=== PATIENT | male | born 1935 | race Caucasian/White ===

== ENCOUNTER 2016-08-23 09:00 | Inpatient (IN) | payer MEDICARE ==
--- NOTE | 2016-08-17 22:54 | HP ---
ADMISSION HISTORY AND PHYSICAL: DATE OF ADMISSION: 08/24/16 ATTENDING PHYSICIAN: Dr. El Rizo (dictated by GIOVANNA Steve). CHIEF COMPLAINT: Ileostomy. HISTORY OF PRESENT ILLNESS: This is an 81-year-old male who underwent subtotal colectomy for right colon bleeding with an incidental sigmoid colon cancer on (the cancer was a T3N0 lesion. He was seen by Dr. Erazo and no further therapy was recommended. His CEA preop and subsequent measurement that were both normal.) The patient's postoperative course was characterized by one admission in January for dehydration and acute kidney injury. Since that time, he has maintained a slightly elevated serum creatinine with reduced creatinine clearance. A consult with Dr. Quan is pending, though the patient does not have a specific appointment yet. He has had some occasional leakage from the ileostomy appliance, but otherwise has had no other problems reported. He would like the ileostomy reversed. He has discussed the indications, risks, benefits, and alternatives of surgery as well as the expected perioperative course. He will administer 2 fleet enemas at home the day before surgery. No additional bowel prep was felt necessary. He understands that stools will likely continue to be loose and frequent per rectum, though eventually his overall fluid balance should improve. He also recently underwent a renal ultrasound showing increased echogenicity consistent medical kidney disease. Also noted was a left simple renal cyst measuring up to 1.7 cm and a simple hepatic cyst measuring up to 3.2 cm. That was ordered by Dr. Hadley with whom he also follows. PAST MEDICAL HISTORY: Colon cancer as noted above, hypertension (no longer requiring medication), insomnia, renal insufficiency (recent creatinine clearance was 41 and serum creatinine 2.3), chronic anemia (felt to be related to acute blood loss at the time of the surgery in January). Since then, he has maintained a fairly stable hemoglobin, though somewhat decreased. His indices ( MCV and MCH) are increased possibly consistent with thalassemia (he has a son who has thalassemia minor). His serum and iron binding capacities were normal. PAST SURGICAL HISTORY: Pervious surgeries include subtotal colectomy on , bilateral inguinal herniorrhaphies, appendectomy remotely, TURB of a bladder cancer by Dr. Hadley, also status post BCG treatment (he underwent cystoscopy in mid July which he states was a normal report). CURRENT MEDICATIONS: 1. Ferrous sulfate 325 mg b.i.d. 2. Vitamin C 500 mg once daily. 3. Fluticasone nasal spray 2 sprays each nostril once daily p.r.n. (has not used in the last 4 to 6 months). 4. Zolpidem 5 mg q.h.s. p.r.n. insomnia (has not needed in recent months). DRUG ALLERGIES: None known. FAMILY HISTORY: Negative for anesthesia problems, bleeding, or clotting disorders (thalassemia minor history in his son. The patient himself has not undergone workup for same). SOCIAL HISTORY: The patient is a . 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 He is a nonsmoker, other than remotely and drinks approximately 4 drinks per week. He denies other substance use. REVIEW OF SYSTEMS: General: No recent constitutional symptoms other than as noted above. He did have approximately 15 to 20 pounds weight loss in relation to his January admission and has regained some of that with current weight being relatively stable at 140. Skin: He has noted pruritus of the upper torso and upper extremities since his surgery. There has been no specific rash, however, nor has he had any specific treatment for the same. Cardiovascular: His records indicate a history of left bundle branch block, which has not required additional workup. We will obtain preoperative EKG for comparison. He denies any chest pain, palpitations, or lightheadedness. Respiratory: No history of asthma, chronic cough, or shortness of breath. GI: As above. He had no additions. : As above, no additions, followed by Dr. Hadley. Endocrine: No diabetes or thyroid dysfunction, though he has had a past history of impaired fasting glucose. PHYSICAL EXAMINATION GENERAL: Well-nourished, well-developed male, in no acute distress. VITAL SIGNS: Height 5 feet 6 inches, weight 141 pounds, temperature 96.6, blood pressure 118/74, pulse 76, BMI 22.8. SKIN: Warm and dry, no suspicious rashes or lesions noted. There are a few scattered areas consistent with excoriation over his upper torso. No infection. HEENT: Pupils equal and round, reactive. EOMs intact. No significant conjunctival pallor. Oropharynx: Few missing teeth. Remaining teeth in good repair. No intraoral lesions. Mucous membranes are moist. NECK: No lymphadenopathy, thyromegaly, or masses. LUNGS: Clear to auscultation. No rales or wheezes. HEART: Regular rate and rhythm. No murmur noted. ABDOMEN: He has a right-sided ileostomy. He has a well-healed lower midline incision. Abdomen is soft, nontender to palpation and without palpable masses or organomegaly. EXTREMITIES: No edema. GENITALIA and RECTAL: No done. BACK: No spinous process or CVA tenderness. NEUROLOGIC: Grossly intact. IMPRESSION: Ileostomy with desire for reversal. PLAN: Open ileostomy reversal. GIOVANNA STEWARD CC: Dr. Joel Joya; Dr. Robert Erazo; Dr. Jonathan Quan * [id number]/CPS #: [id number] MTDD
[2016-08-23] MEDS ORDERED: Ondansetron INJ* 2 MG/ML VIAL IV PRN (10:44)
[2016-08-23 11:40] LABS: Hematocrit 32 % (42-52); Hemoglobin 10.8 g/dl (14.0-18.0); Mean Corpuscular HGB Conc 34 g/dl (31-36); Mean Corpuscular Hemoglobin 32 pg (27-31); Mean Corpuscular Volume 96 fL (80-94); Mean Platelet Volume 8 um3 (7.4-10.4); Red Blood Count 3.36 10^6/ul (4.0-5.4); Red Cell Distribution Width 14 % (10.5-15); White Blood Count 7.9 10^3/ul (3.5-10.8)
[2016-08-23 11:56] LABS: Albumin 4.1 g/dL (3.2-5.2); BUN/Creatinine Ratio 18.8 (8-20); Calcium 9.3 mg/dL (8.6-10.3); EGFR African American 31.2 (>60); EGFR Non-African American 24.2 (>60); Globulin 2.7 g/dL (2-4); Potassium 3.4 mmol/L (3.5-5.0); Total Bilirubin 0.5 mg/dL (0.2-1.0); Total Protein 6.8 g/dL (6.4-8.9)
--- NOTE | 2016-08-23 11:57 | PN ---
Progress Note - Progress Note SOAP: Subjective: Pt yoseph dn examined. H and P reviewed. Pt has no complaints. Direct admitted prior to surgical intervention for hydration Objective: af vss lungs clear abdo: soft/ ND/ NT ileostomy intact no calf tenderness labs pending Assessment: Dehydration 2ary to ileostomy in pt for planned reversal of ostomy Plan: f/u labs hydration NPO at midnight
[2016-08-23] MEDS ORDERED: NS 0.9% 1000 ML* 1,000 ML IV ONE ×2 (12:19→17:57)
[2016-08-23] MEDS: NS 0.9% w/ 20 Meq KCL 1000 ML* 1,000 ML IV SCH ×2 (12:33→23:23)
[2016-08-23] MEDS ORDERED: Sodium Phosphate ADULT ENEMA* 118 ml bottle PR ONE (20:00)
--- NOTE | 2016-08-23 20:44 | CONS ---
HOSPITAL MEDICINE HISTORY AND PHYSICAL: DATE OF CONSULT: 08/23/16 ATTENDING PHYSICIAN: Raheel Hayes MD. CONSULTING PHYSICIAN: Blake Chacon MD (dictation provided by Dinorah Pope NP ). REASON FOR CONSULTATION: Medical co-management, admitted for reversal of ileostomy. HISTORY OF PRESENT ILLNESS: Mr. Acevedo is an 81-year-old male with a history of hypertension who is admitted to our hospital today for fluid hydration in preparation for reversal of ileostomy. Mr. Acevedo states that he was admitted to the hospital in January 2016 with concern for GI bleeding. At that time, he had a colonoscopy, which showed a large tumor in addition to bleeding. He underwent a subtotal colectomy with end Alaina ileostomy with Dr. Rizo. The pathology found him to have an adenocarcinoma. He was followed up with Dr. Erazo and given his complete resection, no further treatment was necessary. The patient states that he has been doing well since undergoing the ileostomy. He has; however, developed a renal insufficiency with CKD stage IIIB. The patient's creatinine has been stable over these many months. He is scheduled to follow up with Dr. Quan in September. Per the report, there is no significant overwhelming ileostomy output that would account for his new chronic kidney disease. Mr. Acevedo states that prior to coming in for surgery , he was feeling in his normal state of health with no acute complaints. Dr. Hayes has admitted the patient for hydration in preparation for surgery tomorrow and Hospital Medicine has been called regarding consultation and medical co-management. PAST MEDICAL HISTORY: 1. Hypertension, not currently on any medications. 2. Colon cancer with adenocarcinoma with subtotal colectomy and ileostomy, January 2016. 3. Chronic kidney disease stage IIIB. MEDICATIONS: 1. Ascorbic acid 500 mg p.o. q.a.m. 2. Ferrous sulfate 65 mg p.o. b.i.d. ALLERGIES: No known drug allergies. FAMILY HISTORY: Reviewed and noncontributory. SOCIAL HISTORY: No report of tobacco use. The patient states he drinks 5 to 6 glasses of wine per week. His is the healthcare proxy. REVIEW OF SYSTEMS: A 14-point review of systems was completed with Mr. Acevedo and all those not mentioned above are negative. PHYSICAL EXAMINATION: GENERAL: Mr. Acevedo is lying in the bed. He is in no acute distress. He is calm and cooperative to my examination. VITAL SIGNS: Temperature 97.6, pulse rate 77, respiratory rate 18, O2 saturation 100% on room air, blood pressure 131/63. LUNGS: Clear to auscultation bilaterally with no accessory muscle use and good aeration. HEART: S1, S2. No murmur, rub, or gallop and regular. ABDOMEN: Soft, nontender. Bowel sounds positive x4. Ileostomy is in place. NEUROLOGIC: He is alert and oriented x3. He moves all extremities equally. There is no facial asymmetry or focal weakness. Extraocular movements are intact. SKIN: Intact. LABORATORY DATA: Sodium 139, potassium 3.4, chloride 114, serum bicarbonate 16 , BUN 48, creatinine 2.55, glucose 98. WBC 7.9, hemoglobin 10.8, hematocrit 32 , platelet count 205. INR 0.97. ASSESSMENT: Mr. Acevedo is an 81-year-old male with a past medical history of colon adenocarcinoma, status post subtotal colectomy and ileostomy who presents to the hospital for ileostomy reversal. Our recommendations are as follows: 1. Plan for ileostomy reversal: Management will be per surgical services. They have ordered for him to have a liter of IV fluid and then normal saline at 150 mL per hour. 2. Chronic kidney disease: The patient's creatinine and BUN are at baseline. Continue to monitor closely during the hospitalization. 3. Hypertension: The patient's blood pressure is running systolically 100 to 130s. He is not currently on any outpatient medications. 4. DVT prophylaxis with SCDs. 5. Code status is DNR. This was completed with the patient today at the bedside. 6. Disposition will be per Surgery. TIME SPENT: Approximately 30 minutes were spent in the consultation of this patient, more than half the time was spent with the patient at the bedside reviewing the events leading up to this hospitalization, performing the physical examination, and reviewing my plan [place] [id number]/CPS #: [id number] MTDD
[2016-08-24 06:07] LABS: Hematocrit 28 % (42-52); Hemoglobin 9.4 g/dl (14.0-18.0); Mean Corpuscular HGB Conc 33 g/dl (31-36); Mean Corpuscular Hemoglobin 32 pg (27-31); Mean Corpuscular Volume 96 fL (80-94); Mean Platelet Volume 8 um3 (7.4-10.4); Red Blood Count 2.95 10^6/ul (4.0-5.4); Red Cell Distribution Width 14 % (10.5-15); White Blood Count 8.9 10^3/ul (3.5-10.8)
[2016-08-24 06:27] LABS: BUN/Creatinine Ratio 15.9 (8-20); Calcium 8.3 mg/dL (8.6-10.3); EGFR African American 36.9 (>60); EGFR Non-African American 28.7 (>60); Potassium 3.9 mmol/L (3.5-5.0)
[2016-08-24] MEDS: NS 0.9% w/ 20 Meq KCL 1000 ML* 1,000 ML IV SCH (06:40)
[2016-08-24] MEDS ORDERED: Ertapenem* 1 GM in NS 0.9% 50 ML* 50 ML IVPB ONE (08:00)
[2016-08-24] MEDS ORDERED: Famotidine IV* 10 MG/ML 2 ML (20 mg) ONE (08:24)
[2016-08-24] MEDS ORDERED: fentaNYL* 50 MCG/ML 2 ML VIAL (100 MCG VIAL) ONE ×2 (08:25→13:26)
[2016-08-24] MEDS ORDERED: Midazolam* 1 MG/ML 5 ML VIAL (5 MG) ONE (08:25)
[2016-08-24] MEDS ORDERED: Atracurium* 10 MG/ML 10 ML VIAL ONE (08:31)
[2016-08-24] MEDS ORDERED: Ondansetron INJ* 2 MG/ML VIAL ONE (09:15)
[2016-08-24] MEDS ORDERED: Propofol* 10 MG/ML 20 ML BTL IV PUSH ONE (09:15)
[2016-08-24] MEDS ORDERED: Succinylcholine* 20 MG/ML 10 ML VIAL ONE (09:15)
[2016-08-24] MEDS ORDERED: Lidocaine 2% MPF* 2 ML VIAL ONE (09:15)
[2016-08-24] MEDS ORDERED: Dexamethasone IV* 4 MG/ML 1 ML (4 MG) ONE (09:15)
[2016-08-24] MEDS ORDERED: Ropivacaine* 2 MG/ML 20 ML VIAL (0.2%) ONE (09:29)
[2016-08-24] MEDS ORDERED: KETAMINE HCL* 50 MG/ML 10 ML VIAL ONE (10:37)
[2016-08-24] MEDS ORDERED: [UNRECOGNIZED DRUG - OTHER] IV PUSH (10:56)
[2016-08-24] MEDS ORDERED: [UNRECOGNIZED DRUG - OTHER] IV PUSH (10:56)
[2016-08-24] MEDS ORDERED: NALOXONE IV PUSH ×2 (10:56)
[2016-08-24] MEDS ORDERED: EPHEDRINE IV SLOW PU (10:58)
[2016-08-24] MEDS ORDERED: [UNRECOGNIZED DRUG - OTHER] IV (11:00)
[2016-08-24] MEDS ORDERED: ONDANSETRON IV (11:00)
[2016-08-24] MEDS ORDERED: NALBUPHINE IV (11:04)
[2016-08-24] MEDS ORDERED: NS 0.9% 500 ML* 500 ML IV PRN (11:05)
[2016-08-24] MEDS ORDERED: Acetaminophen IV 1GM/100ML * 10 MG/ML VIAL IVPB ONE (11:53)
[2016-08-24] MEDS ORDERED: HYDROmorphone INJ* 1 MG/ML CARPUJECT SYRINGE IV PRN (11:53)
[2016-08-24] MEDS ORDERED: DiMENhydriNATE IV* 50 MG/ML VIAL IV PUSH PRN (11:53)
[2016-08-24] MEDS ORDERED: Morphine PF AMP (0.5MG/ML)* 5 MG/10 ML AMP ONE (13:33)
[2016-08-24] MEDS ORDERED: oxyCODONE/Acetamin 5/325 MG* TAB PO PRN (13:49)
[2016-08-24] MEDS ORDERED: Naloxone* 0.4 MG/ML 1 ML VIAL IV PRN (13:49)
--- NOTE | 2016-08-24 14:20 | SURGPN ---
Brief Operative Note - Surgery Procedures: Procedures OPERATIVE REPORT PRE-OP: Existing end ileostomy, S/P remote subtototal colectomy POST-OP: Same PROCEDURE: Ileostomy takedown with ileal-rectal anastomosis SURGEON: MD Sallie ANESTHESIA: General & eoidural, Dr. Nj ASST: Carissa Waite NP IVF: 2600 cc crystalloid EBL: 100 cc SPECIMEN: portion of distal ileum DRAIN: none WOUND CLASS: 3 COMPLICATIONS: none TO PACU
[2016-08-24] MEDS: Ropivacaine 0.1% (300 MG) in 300mL NS EPIDURAL EPIDURAL SCH (16:36)
--- NOTE | 2016-08-24 17:02 | PN ---
Subjective Date of Service: 08/24/16 Interval History: patient is post-op. he reports he has no pain and is feeling groggy but overall well. Denies SOB or CP. No Nausea. is at bedside. tolerating ice chips. Objective Active Medications: Ephedrine Sulfate (Ephedrine Sulfate (Pressors)*) 5 mg IV SLOW PU Q5M PRN PRN Reason: HYPOTENSION Heparin Sodium (Porcine) (Heparin Vial(*)) 5,000 units SUBCUT Q8HR VIELKA Ropivacaine 300 mg/ Sodium (Chloride) 300 mls @ 0 mls/hr EPIDURAL Q24H VIELKA; Per Protocol PRN Reason: Protocol Last Admin: 08/24/16 16:36 Dose: Not Given Sodium Chloride (Ns 0.9% 500 Ml Bag*) 500 mls @ 999 mls/hr IV ONCE PRN PRN Reason: HYPOTENSION Sodium Chloride (Ns 0.9% 1000 Ml*) 1,000 mls @ 75 mls/hr IV PER RATE [facility] Nalbuphine HCl (Nubain*) 5 mg IV Q4H PRN PRN Reason: PRURITIS Naloxone HCl (Narcan*) 0.04 mg IV PUSH Q2M PRN PRN Reason: MODERATE RESPIRATORY DEPRESSIO Naloxone HCl (Narcan*) 0.1 mg IV PUSH Q2M PRN PRN Reason: SEVERE RESPIRATORY DEPRESSION Naloxone HCl (Narcan*) 0.08 mg IV Q2M PRN PRN Reason: respiratory depression Stop: 08/25/16 05:50 Ondansetron HCl (Zofran Inj*) 4 mg IV Q6H PRN PRN Reason: NAUSEA Ondansetron HCl (Zofran Inj*) 4 mg IV Q6H PRN PRN Reason: NAUSEA/VOMITING Oxycodone/Acetaminophen (Percocet 5/325 Tab*) 2 tab PO Q4H PRN PRN Reason: Moderate Pain Stop: 08/25/16 05:50 Vital Signs 08/23/16 08/23/16 08/23/16 19:36 19:40 23:30 Temperature 98.9 F 97.9 F Pulse Rate 79 76 Respiratory 16 16 16 Rate Blood Pressure 123/54 118/60 (mmHg) O2 Sat by Pulse 98 100 Oximetry 08/24/16 08/24/16 08/24/16 03:34 07:29 08:00 Temperature 98.1 F 98.2 F Pulse Rate 81 73 Respiratory 16 16 14 Rate Blood Pressure 107/53 118/61 (mmHg) O2 Sat by Pulse 99 99 Oximetry 08/24/16 08/24/16 08/24/16 14:19 14:25 14:30 Temperature 96.4 F Pulse Rate 85 83 83 Respiratory 16 16 14 Rate Blood Pressure 125/60 127/59 125/62 (mmHg) O2 Sat by Pulse 98 98 97 Oximetry 08/24/16 08/24/16 08/24/16 14:45 14:55 15:00 Temperature 96.8 F Pulse Rate 80 80 81 Respiratory 16 16 14 Rate Blood Pressure 115/56 115/56 92/42 (mmHg) O2 Sat by Pulse 98 99 Oximetry 08/24/16 08/24/16 08/24/16 15:15 15:30 15:45 Temperature 97.5 F 97.5 F Pulse Rate 80 80 83 Respiratory 16 16 16 Rate Blood Pressure 103/54 104/53 112/52 (mmHg) O2 Sat by Pulse 99 100 100 Oximetry 08/24/16 08/24/16 16:03 16:20 Temperature 97.2 F 97.6 F Pulse Rate 80 81 Respiratory 16 12 Rate Blood Pressure 108/60 118/62 (mmHg) O2 Sat by Pulse 100 100 Oximetry Oxygen Devices in Use Now: None Appearance: 81 yo male laying Eyes: No Scleral Icterus, PERRLA Ears/Nose/Mouth/Throat: NL Teeth, Lips, Gums, Mucous Membranes Moist Neck: NL Appearance and Movements; NL JVP Respiratory: Symmetrical Chest Expansion and Respiratory Effort, Clear to Auscultation Cardiovascular: NL Sounds; No Murmurs; No JVD, RRR, No Edema Abdominal: - - midline dressing CD+I - no BS, soft, nontender Extremities: No Edema, No Clubbing, Cyanosis Skin: No Rash or Ulcers, No Nodules or Sclerosis Neurological: Alert and Oriented x 3, NL Sensation, NL Muscle Strength and Tone Lines/Tubes/Other Access: Clean, Dry and Intact Peripheral IV Nutrition: Taking PO's - ice chips Result Diagrams: 08/24/16 05:57 08/24/16 05:57 Assess/Plan/Problems-Billing Assessment: Mr. Acevedo is a 81 yo male with a PMH of colon adenocarcinoma, s/p subtotal colectomy and ileostomy who presents to the hospital for ileostomy reversal. Hospital Medicine was asked to co-medical manage. - Patient Problems (1) s/p ileostomy reversal Comment: s/p reversal ileostomy POD #0 Dispo per surgery pain management ice chips only (2) CKD (chronic kidney disease) Comment: - appears to be around his baseline. continue to monitor daily. (3) HTN (hypertension) Comment: - controlled off blood pressure medications (pt not currently on home medications) (4) DVT prophylaxis Comment: per surgery (5) DNR (do not resuscitate) Status and Disposition: inpatient. Dispo per surgery
[2016-08-24] MEDS ORDERED: HYDROmorphone INJ* 1 MG/ML CARPUJECT SYRINGE IV SLOW PU PRN (19:13)
[2016-08-24] MEDS: Heparin VIAL(*) 5000 UNITS/ML VIAL (FIVE THOUSAND) SUBCUT SCH (21:51)
[2016-08-24] MEDS: Pantoprazole IV* 40 MG IV SCH (21:51)
--- NOTE | 2016-08-25 02:23 | OP ---
CC: [facility]; Joel Joya MD; Dr. Jonathan Quan, Nephrology OPERATIVE REPORT: DATE OF OPERATION: 08/24/16 DATE OF : 31 SURGEON: El Rizo MD PLANT CHANGER: Rasheeda Waite NP ANESTHESIA: Epidural with general. ANESTHESIOLOGIST: Sarah Nj MD PRE-OP DIAGNOSIS: Existing end-ileostomy, status post subtotal colectomy. POST-OP DIAGNOSIS: Existing end-ileostomy, status post subtotal colectomy. OPERATIVE PROCEDURE: Takedown of existing ileostomy with ileorectal anastomosis. ESTIMATED BLOOD LOSS: 100 cc. IV FLUIDS: 2600 cc of crystalloid. URINE OUTPUT: About 400 cc. SPECIMENS: Portion of terminal ileum. DRAINS: None. WOUND CLASSIFICATION: IV. COMPLICATIONS: None. DISPOSITION: To PACU. BRIEF HISTORY: Mr. Wilber Acevedo is an 81-year-old gentleman who had undergone an urgent subtotal colectomy in January of 2016. This was done for persistent bleeding from right diverticula and also on endoscopy was noted to have an incidental finding of a sigmoid colon cancer. At that time, he was not felt a good candidate for anastomosis. He underwent a subtotal colectomy with a Alaina ileostomy. He now presents for takedown of his ileostomy and reanastomosis with the understanding that this may not improve his persistent loose bowel movements and this is an operation of significant magnitude with significant risks, which were all explained with the patient and his , but he wishes to proceed. In addition, he has some chronic renal insufficiency and some of it may be due to fluid losses from the ileostomy, although this will not be dramatically improved with the present operation. DESCRIPTION OF PROCEDURE: Written informed consent was obtained, the abdomen was marked with indelible ink and preoperative antibiotics were administered. The patient was taken to the operating room and placed in the supine position after an epidural catheter had been inserted. Sequential compression device and a warming blanket were applied. Both the abdomen and perineum were prepped and draped in the usual sterile fashion after a Patel catheter had been inserted. General anesthesia had been also administered. Time-out verification was completed. Initially, the ileostomy in the right lower quadrant was taken down using an ellipse of skin incision around the ostomy itself, carried down through the subcutaneous tissue to the fascia and this was all freed up with tedious dissection and the peritoneal cavity was entered and this was freed up. There were several adhesions, but we were able to reduce the small bowel into the peritoneal cavity. Next, the lower midline incision was then opened from below the umbilicus down to the pubis and the peritoneal cavity was entered under direct vision. Fortunately, there were no significant adhesions to the anterior abdominal wall. We were able to enter the peritoneal cavity with little difficulty; however, there were some significant right lower quadrant small bowel adhesions , which involved the small bowel just proximal to the ileostomy portion. These were taken down with careful dissection. There was a serosal tear in one area and this was closed with interrupted 3- 0 silk sutures. There were no other acute findings in the abdominal cavity and we also then addressed the identification of the rectal stump. This has been stapled off just where it was felt to be the distal sigmoid colon. We were able to find the staple line and this was mobilized up and it was just about the pelvic brim and appeared to be viable without abnormality. I then divided the terminal ileum probably about 6 inches proximal from its end where had been formed the ileostomy as this was somewhat fibrosed from being in the subcutaneous space and was divided with a SCOTT 60 stapler and a small portion of mesentery was divided with the LigaSure device and this was then sent as a specimen. I was then able to bring the terminal ileum down into the pelvis to the rectal stump without difficulty without tension. At this point, I made a decision to proceed with the anastomosis within the abdomen and the staple line on the rectum was excised using a cautery to expose the lumen of the rectum, which was viable and healthy. I also then made a longitudinal incision on the antimesenteric border of the small bowel several centimeters proximal to where it had been stapled off. A handsewn anastomosis using single layer interrupted 3-0 silk anastomosis was used to create a side small bowel to end rectum anastomosis. This was completed and there was no tension on the anastomosis. a At the completion of the anastomosis, I performed an insufflation test from the rectum using a Patel balloon and there was no evidence of an anastomotic leak. With this in mind, the entire abdomen was thoroughly irrigated and hemostasis was assured. All sponge, needle, and instrument counts were reported as correct. The perineum on the inside of the right lower quadrant ostomy site was closed with interrupted 0-Polysorb suture. It was necessary to free up the fascia on the anterior surface of the abdominal wall, which was done and a simple relaxing stitch was done laterally and the fascia was closed vertically with interrupted #1 Polysorb sutures to close the ileostomy fascial defect. Next, the midline fascia was closed with interrupted #1 Polysorb suture. The skin at both incisions was closed loosely with a stapling device. It was packed with 0.5 inch Nu Gauze and dry sterile dressings were applied. The patient tolerated the procedure well, was taken to the recovery room in stable condition. [id number]/CPS #: [id number] MTDD
[2016-08-25] MEDS: NS 0.9% 1000 ML* 1,000 ML IV SCH ×2 (05:25→18:57)
[2016-08-25] MEDS: Heparin VIAL(*) 5000 UNITS/ML VIAL (FIVE THOUSAND) SUBCUT SCH ×3 (05:25→21:45)
[2016-08-25 06:56] LABS: Hematocrit 27 % (42-52); Hemoglobin 8.7 g/dl (14.0-18.0); Mean Corpuscular HGB Conc 33 g/dl (31-36); Mean Corpuscular Hemoglobin 31 pg (27-31); Mean Corpuscular Volume 96 fL (80-94); Mean Platelet Volume 9 um3 (7.4-10.4); Red Blood Count 2.77 10^6/ul (4.0-5.4); Red Cell Distribution Width 14 % (10.5-15); White Blood Count 18.1 10^3/ul (3.5-10.8)
[2016-08-25 07:12] LABS: BUN/Creatinine Ratio 15.5 (8-20); Calcium 8.3 mg/dL (8.6-10.3); EGFR African American 33.6 (>60); EGFR Non-African American 26.1 (>60)
[2016-08-25] MEDS: Pantoprazole IV* 40 MG IV SCH (09:21)
[2016-08-25] MEDS: Ropivacaine 0.1% (300 MG) in 300mL NS EPIDURAL EPIDURAL SCH (11:48)
--- NOTE | 2016-08-25 13:02 | PN ---
Progress Note - Progress Note SOAP: Subjective: [] Doing well and pain is well controlled. No N/V Slept well Has been out of bed Objective: Temp Pulse Resp BP Pulse Ox 98.1 F 84 16 101/46 100 08/25/16 11:47 08/25/16 11:47 08/25/16 11:47 08/25/16 11:47 08/25/16 11:47 Intake & Output 08/23/16 08/24/16 08/25/16 08/26/16 06:59 06:59 06:59 06:59 Intake Total 5178 4021 Output Total 2550 2950 Balance 2628 1071 Weight 140 lb Intake: IV Fluids 2879 3801 LR 2600 NS (0.9%) 1000 1201 NS (0.9%) 20 meq KCL 1879 IVPB 999 NS (0.9%) 999 Oral 1300 220 Output: Urine 1875 375 Carlos 1850 Residual 400 16 Fr 400 Ileostomy 675 325 Other: Estimated Blood Loss <100 Comment PEX: Comfortable in NAD Lungs are clear with decreased breath sounds in the bases Abd is soft and non-distended. Outer dressing changed, packing in place Bowel sounds are present. Ext without edema Laboratory Results - last 24 hr 08/25/16 08/25/16 06:28 06:28 WBC 18.1 H RBC 2.77 L Hgb 8.7 L Hct 27 L MCV 96 H MCH 31 MCHC 33 RDW 14 Plt Count 166 MPV 9 Neut % (Auto) 90.8 H Lymph % (Auto) 3.0 L Steele % (Auto) 6.0 Eos % (Auto) 0 Baso % (Auto) 0.2 Absolute Neuts (auto) 16.4 H Absolute Lymphs (auto) 0.5 L Absolute Monos (auto) 1.1 H Absolute Eos (auto) 0 Absolute Basos (auto) 0 Absolute Nucleated RBC 0 Nucleated RBC % 0 Sodium 142 Potassium 4.0 Chloride 121 H Carbon Dioxide 16 L Anion Gap 5 BUN 37 H Creatinine 2.39 H Est GFR ( Amer) 33.6 Est GFR (Non-Af Amer) 26.1 BUN/Creatinine Ratio 15.5 Glucose 133 H Calcium 8.3 L Assessment: POD # 1 s/p ileostomy takedown and ileal-rectal anastomosis Post op ileus Chronic renal failure Plan: Continue epidural and carlos Increase activity and pulmonary toilet PPI and sub q heparin Recheck labs in AM
[2016-08-25] MEDS ORDERED: Acetaminophen TAB* 325 MG PO PRN (18:03)
--- NOTE | 2016-08-25 18:30 | PN ---
Subjective Date of Service: 08/25/16 Interval History: patient reports he feels much worse today with increased abdominal pain. he is not sure if he is passing flatulence. no fevers or chills. No nausea or vomiting. biggest c/o is hiccups. Objective Active Medications: Acetaminophen (Tylenol Tab*) 650 mg PO Q6H PRN PRN Reason: FEVER Ephedrine Sulfate (Ephedrine Sulfate (Pressors)*) 5 mg IV SLOW PU Q5M PRN PRN Reason: HYPOTENSION Heparin Sodium (Porcine) (Heparin Vial(*)) 5,000 units SUBCUT Q8HR [facility] Last Admin: 08/25/16 14:12 Dose: 5,000 units Ropivacaine 300 mg/ Sodium (Chloride) 300 mls @ 0 mls/hr EPIDURAL Q24H [facility]; Per Protocol PRN Reason: Protocol Last Admin: 08/25/16 11:48 Dose: Not Given Sodium Chloride (Ns 0.9% 500 Ml Bag*) 500 mls @ 999 mls/hr IV ONCE PRN PRN Reason: HYPOTENSION Sodium Chloride (Ns 0.9% 1000 Ml*) 1,000 mls @ 75 mls/hr IV PER RATE [facility] Last Admin: 08/25/16 05:25 Dose: 75 mls/hr Nalbuphine HCl (Nubain*) 5 mg IV Q4H PRN PRN Reason: PRURITIS Naloxone HCl (Narcan*) 0.04 mg IV PUSH Q2M PRN PRN Reason: MODERATE RESPIRATORY DEPRESSIO Naloxone HCl (Narcan*) 0.1 mg IV PUSH Q2M PRN PRN Reason: SEVERE RESPIRATORY DEPRESSION Ondansetron HCl (Zofran Inj*) 4 mg IV Q6H PRN PRN Reason: NAUSEA Ondansetron HCl (Zofran Inj*) 4 mg IV Q6H PRN PRN Reason: NAUSEA/VOMITING Pantoprazole Sodium (Protonix Iv*) 40 mg IV DAILY [facility] Last Admin: 08/25/16 09:21 Dose: 40 mg Vital Signs 08/24/16 08/24/16 08/24/16 18:29 18:39 20:33 Temperature 98.5 F 97.4 F 99.2 F Pulse Rate 92 92 104 Respiratory 14 16 16 Rate Blood Pressure 124/68 124/72 124/51 (mmHg) O2 Sat by Pulse 100 100 99 Oximetry 08/24/16 08/24/16 08/24/16 20:43 20:45 23:11 Temperature 98.0 F Pulse Rate 101 Respiratory 16 16 16 Rate Blood Pressure 101/51 (mmHg) O2 Sat by Pulse 100 Oximetry 08/25/16 08/25/16 08/25/16 03:41 07:27 07:55 Temperature 98.1 F 98.2 F Pulse Rate 92 85 Respiratory 16 16 16 Rate Blood Pressure 96/48 102/54 (mmHg) O2 Sat by Pulse 98 100 100 Oximetry 08/25/16 08/25/16 08/25/16 11:47 15:12 16:00 Temperature 98.1 F 101.2 F Pulse Rate 84 89 Respiratory 16 18 Rate Blood Pressure 101/46 126/56 (mmHg) O2 Sat by Pulse 100 100 Oximetry 08/25/16 16:20 Temperature 99.4 F Pulse Rate Respiratory Rate Blood Pressure (mmHg) O2 Sat by Pulse Oximetry Oxygen Devices in Use Now: None Appearance: 81 yo male A+Ox3 in NAD laying in bed with apparent hiccups Eyes: No Scleral Icterus, PERRLA Ears/Nose/Mouth/Throat: NL Teeth, Lips, Gums, Mucous Membranes Moist Neck: NL Appearance and Movements; NL JVP Respiratory: Symmetrical Chest Expansion and Respiratory Effort, Clear to Auscultation Cardiovascular: NL Sounds; No Murmurs; No JVD, RRR, No Edema Abdominal: - - midline dressing intact (did not take down the dressing) small area of light red fluid on dressing. soft, mild tenderness around dressing site. hypoactive BS Lymphatic: No Cervical Adenopathy Extremities: No Edema, No Clubbing, Cyanosis Skin: No Rash or Ulcers, No Nodules or Sclerosis Neurological: Alert and Oriented x 3, NL Sensation, NL Gait, NL Muscle Strength and Tone Lines/Tubes/Other Access: Clean, Dry and Intact Peripheral IV Nutrition: Taking PO's Result Diagrams: 08/25/16 06:28 08/25/16 06:28 Assess/Plan/Problems-Billing Assessment: Mr. Acevedo is a 81 yo male with a PMH of colon adenocarcinoma, s/p subtotal colectomy and ileostomy who presents to the hospital for ileostomy reversal. Hospital Medicine was asked to co-medical manage. - Patient Problems (1) s/p ileostomy reversal Comment: s/p reversal ileostomy POD #1 Dispo per surgery Post-op fever 101 this afternoon. no tachycardia or signs of sepsis. continue to monitor. pain management (2) CKD (chronic kidney disease) Comment: - appears to be around his baseline. continue to monitor daily. (3) HTN (hypertension) Comment: - controlled off blood pressure medications (pt not currently on home medications) (4) DVT prophylaxis Comment: per surgery (5) DNR (do not resuscitate) Status and Disposition: inpatient. Dispo per surgery
[2016-08-26 07:07] LABS: Hematocrit 30 % (42-52); Hemoglobin 10.1 g/dl (14.0-18.0); Mean Corpuscular HGB Conc 33 g/dl (31-36); Mean Corpuscular Hemoglobin 32 pg (27-31); Mean Corpuscular Volume 95 fL (80-94); Mean Platelet Volume 9 um3 (7.4-10.4); Red Blood Count 3.19 10^6/ul (4.0-5.4); Red Cell Distribution Width 14 % (10.5-15); White Blood Count 14.2 10^3/ul (3.5-10.8)
[2016-08-26 07:16] LABS: Calcium 8.8 mg/dL (8.6-10.3); EGFR African American 30.6 (>60); EGFR Non-African American 23.8 (>60); Potassium 3.5 mmol/L (3.5-5.0)
[2016-08-26] MEDS ORDERED: NS 0.9% 250 ML* 250 ML ONE (07:31)
[2016-08-26] MEDS: Ropivacaine 0.1% (300 MG) in 300mL NS EPIDURAL EPIDURAL SCH ×2 (07:34→10:24)
[2016-08-26] MEDS ORDERED: HYDROmorphone INJ* 1 MG/ML CARPUJECT SYRINGE IV SLOW PU PRN ×3 (07:49→17:19)
[2016-08-26] MEDS: NS 0.9% 1000 ML* 1,000 ML IV SCH (08:13)
[2016-08-26] MEDS: Pantoprazole IV* 40 MG IV SCH (08:52)
[2016-08-26] MEDS ORDERED: HYDROmorphone PCA* 20 MG/20 ML PCA.SYRING PCA SCH (09:00)
--- NOTE | 2016-08-26 09:20 | PN ---
Progress Note - Progress Note SOAP: Subjective: Overall doing well although has some hiccups over night-he has had this problem in the past after anesthesia. Pain is well controlled, no nausea or vomiting. He has had several watery green bowel movements overnight. He is not sure about passing flatus He did ambulate in the halls yesterday. Objective: TMAX 101.2 one time yesterday and resolved without tylenol. Temp Pulse Resp BP Pulse Ox 98.0 F 85 18 146/72 98 08/26/16 03:56 08/26/16 03:56 08/26/16 08:00 08/26/16 03:56 08/26/16 03:56 Intake & Output 08/24/16 08/25/16 08/26/16 08/27/16 06:59 06:59 06:59 06:59 Intake Total 5178 4021 1567 Output Total 2550 2950 1475 Balance 2628 1071 92 Weight 140 lb Intake: IV Fluids 2879 3801 997 LR 2600 NS (0.9%) 1000 1201 997 NS (0.9%) 20 meq KCL 1879 IVPB 999 NS (0.9%) 999 Oral 1300 220 570 Output: Urine 1875 375 Carlos 1850 1425 Residual 400 16 Fr 400 Liquid Stool 50 Ileostomy 675 325 Other: Date of Last Bowel 08/26/16 Movement # Bowel Movements 1 Estimated Stool Amount Small Small Estimated Blood Loss <100 Comment PEX: Comfortable Lungs are CTA Cor is RRR Abd is soft and non-distended. The wound dressing is intact. There are scattered bowel sounds throughout. Extremities without edema Laboratory Last Values WBC 14.2 10^3/ul (3.5-10.8) H 08/26/16 06:37 RBC 3.19 10^6/ul (4.0-5.4) L 08/26/16 06:37 Hgb 10.1 g/dl (14.0-18.0) L 08/26/16 06:37 Hct 30 % (42-52) L 08/26/16 06:37 MCV 95 fL (80-94) H 08/26/16 06:37 MCH 32 pg (27-31) H 08/26/16 06:37 MCHC 33 g/dl (31-36) 08/26/16 06:37 RDW 14 % (10.5-15) 08/26/16 06:37 Plt Count 172 10^3/ul (150-450) 08/26/16 06:37 MPV 9 um3 (7.4-10.4) 08/26/16 06:37 Neut % (Auto) 90.1 % (38-83) H 08/26/16 06:37 Lymph % (Auto) 4.0 % (25-47) L 08/26/16 06:37 Jay % (Auto) 5.5 % (1-9) 08/26/16 06:37 Eos % (Auto) 0.1 % (0-6) 08/26/16 06:37 Baso % (Auto) 0.3 % (0-2) 08/26/16 06:37 Absolute Neuts (auto) 12.8 10^3/ul (1.5-7.7) H 08/26/16 06:37 Absolute Lymphs (auto) 0.6 10^3/ul (1.0-4.8) L 08/26/16 06:37 Absolute Monos (auto) 0.8 10^3/ul (0-0.8) 08/26/16 06:37 Absolute Eos (auto) 0 10^3/ul (0-0.6) 08/26/16 06:37 Absolute Basos (auto) 0 10^3/ul (0-0.2) 08/26/16 06:37 Absolute Nucleated RBC 0 10^3/ul 08/26/16 06:37 Nucleated RBC % 0 08/26/16 06:37 INR (Anticoag Therapy) 1.12 (0.89-1.11) H 08/26/16 06:37 APTT 29.2 seconds (26.0-36.3) 08/26/16 06:37 Sodium 144 mmol/L (133-145) 08/26/16 06:37 Potassium 3.5 mmol/L (3.5-5.0) 08/26/16 06:37 Chloride 120 mmol/L (101-111) H 08/26/16 06:37 Carbon Dioxide 16 mmol/L (22-32) L 08/26/16 06:37 Anion Gap 8 mmol/L (2-11) 08/26/16 06:37 BUN 44 mg/dL (6-24) H 08/26/16 06:37 Creatinine 2.59 mg/dL (0.67-1.17) H 08/26/16 06:37 Est GFR ( Amer) 30.6 (>60) 08/26/16 06:37 Est GFR (Non-Af Amer) 23.8 (>60) 08/26/16 06:37 BUN/Creatinine Ratio 17.0 (8-20) 08/26/16 06:37 Glucose 128 mg/dL (70-100) H 08/26/16 06:37 Calcium 8.8 mg/dL (8.6-10.3) 08/26/16 06:37 Total Bilirubin 0.50 mg/dL (0.2-1.0) 08/23/16 11:31 AST 16 U/L (13-39) 08/23/16 11:31 ALT 15 U/L (7-52) 08/23/16 11:31 Alkaline Phosphatase 73 U/L (34-104) 08/23/16 11:31 Total Protein 6.8 g/dL (6.4-8.9) 08/23/16 11:31 Albumin 4.1 g/dL (3.2-5.2) 08/23/16 11:31 Globulin 2.7 g/dL (2-4) 08/23/16 11:31 Albumin/Globulin Ratio 1.5 (1-3) 08/23/16 11:31 Prealbumin 23 mg/dL (18-38) 08/24/16 05:57 Blood Type B Negative 08/24/16 08:17 Antibody Screen Negative 08/24/16 08:17 Crossmatch See Detail 08/24/16 08:17 Assessment: POD# 2 s/p ileostomy takedown with ileal-rectal anastomosis. Ileus--He is starting to have some loose BM's. Chronic renal failure--Cr is up slightly today and has excellent urine output. Epidural in place-to be removed today. Fever once yesterday-resolved, otherwise doing well Plan: Remove epidural and carlos Increase activity and pulmonary toilet. Sub q heparin and PPI Start sips of clear liquids. Change wound packing Will discuss with hospitalist regarding medical management of renal failure and electrolyte results to optimize renal function. He has had hiccup in the past and did not tolerate several different medicines, Compazine caused hypotension and thus we will follow this for now and it does not appear to be bothering him.
[2016-08-26] MEDS: Heparin VIAL(*) 5000 UNITS/ML VIAL (FIVE THOUSAND) SUBCUT SCH ×2 (14:09→22:42)
--- NOTE | 2016-08-26 20:15 | PN ---
Subjective Date of Service: 08/26/16 Interval History: patient reports he feels much better today with less abdominal pain. no fevers or chills. continues to have hiccups. Reports loose stool. tolerating clear liquid diet. no CP or SOB Objective Active Medications: Acetaminophen (Tylenol Tab*) 650 mg PO Q6H PRN PRN Reason: FEVER Heparin Sodium (Porcine) (Heparin Vial(*)) 5,000 units SUBCUT Q8HR [facility] Last Admin: 08/26/16 14:09 Dose: 5,000 units Hydromorphone HCl (Dilaudid Iv*) 0.5 mg IV SLOW PU Q1H PRN PRN Reason: PAIN Sodium Chloride (Ns 0.9% 500 Ml Bag*) 500 mls @ 999 mls/hr IV ONCE PRN PRN Reason: HYPOTENSION Hydromorphone HCl (Dilaudid Surgical Tech*) 20 mg in 20 mls @ 0 mls/hr FRUIT STUFFER .change Q24H [facility]; Per Protocol PRN Reason: Protocol Lactated Ringer's (Lactated Ringers 1000 Ml Bag*) 1,000 mls @ 100 mls/hr IV PER RATE [facility] Last Admin: 08/26/16 14:09 Dose: 100 mls/hr Ondansetron HCl (Zofran Inj*) 4 mg IV Q6H PRN PRN Reason: NAUSEA Pantoprazole Sodium (Protonix Iv*) 40 mg IV DAILY [facility] Last Admin: 08/26/16 08:52 Dose: 40 mg Vital Signs 08/26/16 08/26/16 08/26/16 00:16 03:56 08:00 Temperature 97.9 F 98.0 F Pulse Rate 100 85 Respiratory 18 18 18 Rate Blood Pressure 133/73 146/72 (mmHg) O2 Sat by Pulse 97 98 98 Oximetry 08/26/16 08/26/16 08/26/16 08:22 12:10 15:44 Temperature 97.8 F 98.2 F 98.1 F Pulse Rate 87 77 72 Respiratory 18 18 12 Rate Blood Pressure 150/77 139/58 118/52 (mmHg) O2 Sat by Pulse 98 100 98 Oximetry 08/26/16 16:00 Temperature Pulse Rate Respiratory Rate Blood Pressure (mmHg) O2 Sat by Pulse 98 Oximetry Oxygen Devices in Use Now: None Appearance: 81 yo male laying in bed in NAD. A+O x3 Eyes: No Scleral Icterus, PERRLA Ears/Nose/Mouth/Throat: NL Teeth, Lips, Gums, Mucous Membranes Moist Neck: NL Appearance and Movements; NL JVP Respiratory: Symmetrical Chest Expansion and Respiratory Effort, Clear to Auscultation Cardiovascular: NL Sounds; No Murmurs; No JVD, RRR, No Edema Abdominal: - - mid-line abdominal dressing intact small area of light red drianage noted. soft, nontender, NL BS Extremities: No Edema, No Clubbing, Cyanosis Skin: No Rash or Ulcers, No Nodules or Sclerosis Neurological: Alert and Oriented x 3, NL Sensation, NL Gait, NL Muscle Strength and Tone Lines/Tubes/Other Access: Clean, Dry and Intact Peripheral IV Nutrition: Taking PO's Result Diagrams: 08/26/16 06:37 08/26/16 06:37 Assess/Plan/Problems-Billing Assessment: Mr. Acevedo is a 81 yo male with a PMH of colon adenocarcinoma, s/p subtotal colectomy and ileostomy who presents to the hospital for ileostomy reversal. Hospital Medicine was asked to co-medical manage. - Patient Problems (1) s/p ileostomy reversal Comment: s/p reversal ileostomy POD #2 Dispo per surgery afebrile. pain management (2) Hyperchloremia Comment: w/o metabolic acidosis. swith NS to LR. Recheck BMP in am. (3) CKD (chronic kidney disease) Comment: - appears to be around his baseline. continue to monitor daily. (4) HTN (hypertension) Comment: - controlled off blood pressure medications (pt not currently on home medications) (5) DVT prophylaxis Comment: per surgery (6) DNR (do not resuscitate) Status and Disposition: inpatient. Dispo per surgery
[2016-08-27] MEDS: Heparin VIAL(*) 5000 UNITS/ML VIAL (FIVE THOUSAND) SUBCUT SCH ×3 (06:09→20:48)
[2016-08-27 06:39] LABS: BUN/Creatinine Ratio 16.7 (8-20); Calcium 8.6 mg/dL (8.6-10.3); EGFR African American 31.6 (>60); EGFR Non-African American 24.6 (>60); Potassium 2.8 mmol/L (3.5-5.0)
--- NOTE | 2016-08-27 07:57 | PN ---
Progress Note - Progress Note SOAP: Subjective: Continues to feel better-passing flatus and has had multiple green loose bowel movements. Minimal pain and has not used narcotics Ambulating more in halls No N/V and tolerated small amount of clear liquids Objective: Temp Pulse Resp BP Pulse Ox 97.9 F 65 18 137/64 100 08/27/16 04:07 08/27/16 04:07 08/27/16 07:18 08/27/16 04:07 08/27/16 04:07 Intake & Output 08/25/16 08/26/16 08/27/16 08/28/16 06:59 06:59 06:59 06:59 Intake Total 4021 1567 3788 Output Total 2950 1475 1350 Balance 1071 92 2438 Intake: IV Fluids 3801 997 3028 LR 2600 1595 NS (0.9%) 8796 531 1216 Oral 220 570 760 Output: Urine 375 650 Patel 1850 1425 450 Residual 400 16 Fr 400 Liquid Stool 50 250 Ileostomy 325 Other: Date of Last Bowel 08/26/16 Movement # Bowel Movements 1 Estimated Stool Amount Small Large Estimated Blood Loss <100 Comment PEX: Comfortable Lungs are CTA Abd is soft and non-distended. Bowel sounds are present throughout and are normal pitched. Incision and ostomy site are clean and open-packing was changed. Extremities without edema Laboratory Results - last 24 hr 08/27/16 05:45 Sodium 142 Potassium 2.8 L Chloride 116 H Carbon Dioxide 18 L Anion Gap 8 BUN 42 H Creatinine 2.52 H Est GFR ( Amer) 31.6 Est GFR (Non-Af Amer) 24.6 BUN/Creatinine Ratio 16.7 Glucose 113 H Calcium 8.6 Assessment: POD# 3 s/p ileostomy reversal with ileal-rectal anastomosis Ileus-resolving Hypokalemia Chronic renal failure Plan: Replete K+-oral and IV today and check level later today Advance diet-full liquids, will continue maintenance IVF as I think he will continue to lose fluids with expected loose BM's after reversal. Increase activity Check Mg and Phos also today PPI and sub q heparin Wound care-packing changed today.
[2016-08-27 08:10] LABS: Magnesium 1.9 mg/dL (1.9-2.7); Phosphorus 2.7 mg/dL (2.5-5.0)
[2016-08-27] MEDS: Potassium Chlor TAB* 20 MEQ TAB.ER PO SCH ×3 (08:37→20:45)
[2016-08-27] MEDS: KCL 10 MEQ/50 ML IVPREMIX* 10 MEQ/50 ML BAG IV SCH ×5 (08:38→14:00)
[2016-08-27] MEDS: Pantoprazole IV* 40 MG IV SCH (08:38)
--- NOTE | 2016-08-27 14:06 | PN ---
Subjective Date of Service: 08/27/16 Interval History: Patient reports he feels better everyday. no abdominal pain. continues to have hiccups and loose BMs. Tolerating diet. No fevers or chills. overall feeling much better. Objective Active Medications: Acetaminophen (Tylenol Tab*) 650 mg PO Q6H PRN PRN Reason: FEVER Heparin Sodium (Porcine) (Heparin Vial(*)) 5,000 units SUBCUT Q8HR [facility] Last Admin: 08/27/16 06:09 Dose: 5,000 units Hydromorphone HCl (Dilaudid Iv*) 0.5 mg IV SLOW PU Q1H PRN PRN Reason: PAIN Sodium Chloride (Ns 0.9% 500 Ml Bag*) 500 mls @ 999 mls/hr IV ONCE PRN PRN Reason: HYPOTENSION Hydromorphone HCl (Dilaudid Stripping Shovel Operator*) 20 mg in 20 mls @ 0 mls/hr EXPELLER OPERATOR .change Q24H [facility]; Per Protocol PRN Reason: Protocol Lactated Ringer's (Lactated Ringers 1000 Ml Bag*) 1,000 mls @ 100 mls/hr IV PER RATE [facility] Last Admin: 08/27/16 09:56 Dose: 100 mls/hr Ondansetron HCl (Zofran Inj*) 4 mg IV Q6H PRN PRN Reason: NAUSEA Pantoprazole Sodium (Protonix Iv*) 40 mg IV DAILY [facility] Last Admin: 08/27/16 08:38 Dose: 40 mg Potassium Chloride (Klor Con Er Tab*) 40 meq PO BID [facility] Last Admin: 08/27/16 09:56 Dose: Not Given Vital Signs 08/26/16 08/26/16 08/26/16 15:44 16:00 20:00 Temperature 98.1 F Pulse Rate 72 Respiratory 12 16 Rate Blood Pressure 118/52 (mmHg) O2 Sat by Pulse 98 98 Oximetry 08/26/16 08/26/16 08/27/16 20:02 22:48 04:07 Temperature 98.3 F 98.3 F 97.9 F Pulse Rate 72 75 65 Respiratory 18 16 16 Rate Blood Pressure 116/55 134/57 137/64 (mmHg) O2 Sat by Pulse 100 98 100 Oximetry 08/27/16 08/27/16 08/27/16 07:18 08:08 12:39 Temperature 98.0 F 98.2 F Pulse Rate 68 76 Respiratory 18 18 18 Rate Blood Pressure 129/63 133/63 (mmHg) O2 Sat by Pulse 98 100 Oximetry Oxygen Devices in Use Now: None Appearance: 81 yo male laying in bed in NAD. A+O x3 Eyes: No Scleral Icterus, PERRLA Ears/Nose/Mouth/Throat: NL Teeth, Lips, Gums, Mucous Membranes Moist Neck: NL Appearance and Movements; NL JVP Respiratory: Symmetrical Chest Expansion and Respiratory Effort, Clear to Auscultation Cardiovascular: NL Sounds; No Murmurs; No JVD, RRR, No Edema Abdominal: - - mid line incision with intact dressing with small amount of noted light red drainage under dressing. no tenderness, soft, nondistended Extremities: No Edema, No Clubbing, Cyanosis Neurological: Alert and Oriented x 3, NL Sensation, NL Gait, NL Muscle Strength and Tone Lines/Tubes/Other Access: Clean, Dry and Intact Peripheral IV Nutrition: Taking PO's Result Diagrams: 08/26/16 06:37 08/27/16 05:45 Assess/Plan/Problems-Billing Assessment: Mr. Acevedo is a 81 yo male with a PMH of colon adenocarcinoma, s/p subtotal colectomy and ileostomy who presents to the hospital for ileostomy reversal. Hospital Medicine was asked to co-medical manage. - Patient Problems (1) s/p ileostomy reversal Comment: s/p reversal ileostomy POD #3 Dispo per surgery Improving daily. afebrile. HH stable pain management (2) Hyperchloremia Comment: w/o metabolic acidosis. Improving. Continue LR. Recheck BMP in am. (3) CKD (chronic kidney disease) Comment: - appears to be around his baseline. continue to monitor daily. (4) HTN (hypertension) Comment: - controlled off blood pressure medications (pt not currently on home medications) (5) DVT prophylaxis Comment: HSQ (6) DNR (do not resuscitate) Status and Disposition: inpatient. Dispo per surgery
[2016-08-28] MEDS: Heparin VIAL(*) 5000 UNITS/ML VIAL (FIVE THOUSAND) SUBCUT SCH ×3 (05:43→22:42)
[2016-08-28 07:06] LABS: Albumin 2.7 g/dL (3.2-5.2); BUN/Creatinine Ratio 15.5 (8-20); Calcium 8.5 mg/dL (8.6-10.3); EGFR African American 34.7 (>60); Globulin 2.3 g/dL (2-4); Potassium 3.6 mmol/L (3.5-5.0); Total Bilirubin 0.4 mg/dL (0.2-1.0)
[2016-08-28] MEDS: Pantoprazole IV* 40 MG IV SCH (09:13)
[2016-08-28] MEDS: Potassium Chlor TAB* 20 MEQ TAB.ER PO SCH ×2 (09:13→20:36)
--- NOTE | 2016-08-28 10:40 | PN ---
Progress Note - Progress Note SOAP: Subjective: He is doing well-had multiple loose watery bowel movements yesterday as his ileus resolves. Tolerating liquids and wants to try food. Minimal pain and he has been ambulating in the halls Objective: Temp Pulse Resp BP Pulse Ox 97.9 F 75 18 130/68 98 08/28/16 08:06 08/28/16 08:06 08/28/16 08:06 08/28/16 08:06 08/28/16 08:06 Intake & Output 08/26/16 08/27/16 08/28/16 08/29/16 06:59 06:59 06:59 06:59 Intake Total 1567 3788 4704 560 Output Total 1475 1350 2000 Balance 92 2438 2704 560 Intake: IV Fluids 997 3028 1878 LR 1595 1878 NS (0.9%) 997 1433 IVPB 236 potassium 236 Oral 143 665 3732 560 Output: Urine 650 2000 Patel 1425 450 Liquid Stool 50 250 Other: Date of Last Bowel 08/26/16 08/27/16 Movement # Bowel Movements 1 2 Estimated Stool Amount Small Large Large PEX: Comfortable Lungs are CTA Abd is soft and non-distended. Bowel sounds are present throughout and are normoactive. Midline wound is clean and open, ostomy site also clean--packing was changed. Ext without edema Laboratory Results - last 24 hr 08/24/16 08/27/16 08/28/16 08:17 14:51 06:43 Sodium 140 Potassium 3.6 3.6 Chloride 115 H Carbon Dioxide 18 L Anion Gap 7 BUN 36 H Creatinine 2.32 H Est GFR ( Amer) 34.7 Est GFR (Non-Af Amer) 27.0 BUN/Creatinine Ratio 15.5 Glucose 98 Calcium 8.5 L Total Bilirubin 0.40 AST 19 ALT 18 Alkaline Phosphatase 40 Total Protein 5.0 L Albumin 2.7 L Globulin 2.3 Albumin/Globulin Ratio 1.2 Crossmatch See Detail Assessment: POD# 4 s/p ileostomy reversal with ileal-rectal anastomosis Ileus-resolving Hypokalemia-responding to repletion Loose BM's-to be expected after subtotal colectomy Plan: Advance diet to regular Replete K+ Wound care-VN involved on D/C Will plan to start anti-diarrheal agent i.e. Lomotil tomorrow in attempt to slow motility and decrease fluid losses-want to make sure ileus is completely resolved and he is tolerating diet. Will keep IVF running to assure adequate hydration and recheck labs in AM. BUN/Cr remain stable. He is not ready for D/C and will carefully follow I/O and oral intake and renal function-want to avoid return to hospital for dehydration and acute renal failure which has happened to him in past.
--- NOTE | 2016-08-28 19:44 | PN ---
Subjective Date of Service: 08/28/16 Interval History: pt reports he is feeling better everyday. continues to have loose stools but feels that they are slowing down. no fever or chills. No N/V or abdominal pain. Objective Active Medications: Acetaminophen (Tylenol Tab*) 650 mg PO Q6H PRN PRN Reason: FEVER Heparin Sodium (Porcine) (Heparin Vial(*)) 5,000 units SUBCUT Q8HR [facility] Last Admin: 08/28/16 13:44 Dose: 5,000 units Hydromorphone HCl (Dilaudid Iv*) 0.5 mg IV SLOW PU Q1H PRN PRN Reason: PAIN Sodium Chloride (Ns 0.9% 500 Ml Bag*) 500 mls @ 999 mls/hr IV ONCE PRN PRN Reason: HYPOTENSION Hydromorphone HCl (Dilaudid Soaping Department Supervisor*) 20 mg in 20 mls @ 0 mls/hr CHAIN TENDER .change Q24H [facility]; Per Protocol PRN Reason: Protocol Lactated Ringer's (Lactated Ringers 1000 Ml Bag*) 1,000 mls @ 100 mls/hr IV PER RATE [facility] Last Admin: 08/28/16 06:23 Dose: 100 mls/hr Ondansetron HCl (Zofran Inj*) 4 mg IV Q6H PRN PRN Reason: NAUSEA Pantoprazole Sodium (Protonix Iv*) 40 mg IV DAILY [facility] Last Admin: 08/28/16 09:13 Dose: 40 mg Potassium Chloride (Klor Con Er Tab*) 40 meq PO BID [facility] Last Admin: 08/28/16 09:13 Dose: 40 meq Vital Signs 08/27/16 08/27/16 08/28/16 19:57 23:43 01:29 Temperature 98.5 F 98.6 F Pulse Rate 76 75 Respiratory 16 17 16 Rate Blood Pressure 127/56 134/58 (mmHg) O2 Sat by Pulse 99 98 Oximetry 08/28/16 08/28/16 08/28/16 03:01 08:00 08:06 Temperature 98.7 F 97.9 F Pulse Rate 70 75 Respiratory 17 16 18 Rate Blood Pressure 130/53 130/68 (mmHg) O2 Sat by Pulse 99 98 Oximetry 08/28/16 08/28/16 12:44 16:24 Temperature 98.0 F 98.8 F Pulse Rate 68 78 Respiratory 18 16 Rate Blood Pressure 109/54 110/52 (mmHg) O2 Sat by Pulse 100 99 Oximetry Oxygen Devices in Use Now: None Appearance: 81 yo male A+Ox3 laying in bed in NAD. Eyes: No Scleral Icterus, PERRLA Ears/Nose/Mouth/Throat: NL Teeth, Lips, Gums, Mucous Membranes Moist Neck: NL Appearance and Movements; NL JVP, Trachea Midline Respiratory: Symmetrical Chest Expansion and Respiratory Effort, Clear to Auscultation Cardiovascular: NL Sounds; No Murmurs; No JVD, RRR, No Edema Abdominal: - - midline incision with CD +I dressing - no drainage noted, soft, nontender, no guarding, Nl BS Lymphatic: No Cervical Adenopathy Extremities: No Edema, No Clubbing, Cyanosis Skin: No Rash or Ulcers, No Nodules or Sclerosis Neurological: Alert and Oriented x 3, NL Sensation, NL Muscle Strength and Tone Lines/Tubes/Other Access: Clean, Dry and Intact Peripheral IV Nutrition: Taking PO's Result Diagrams: 08/26/16 06:37 08/28/16 06:43 Assess/Plan/Problems-Billing Assessment: Mr. Acevedo is a 81 yo male with a PMH of colon adenocarcinoma, s/p subtotal colectomy and ileostomy who presents to the hospital for ileostomy reversal. Hospital Medicine was asked to co-medical manage. - Patient Problems (1) s/p ileostomy reversal Comment: s/p reversal ileostomy POD #4 Dispo per surgery - plan to start Lomotil tomorrow in attempt to slow motility and decrease fluid losses. Improving daily. afebrile. HH stable Plan for VN on DC for wound care continie IVFs for now. Check labs in am. (2) Hyperchloremia Comment: w/o metabolic acidosis. Improving. Continue LR. Recheck BMP in am. (3) CKD (chronic kidney disease) Comment: - appears to be around his baseline. continue to monitor daily. (4) HTN (hypertension) Comment: - controlled off blood pressure medications (pt not currently on home medications) (5) DVT prophylaxis Comment: HSQ (6) DNR (do not resuscitate) Status and Disposition: inpatient. Dispo per surgery. Plan for VN on DC for wound care.
[2016-08-29] MEDS: Heparin VIAL(*) 5000 UNITS/ML VIAL (FIVE THOUSAND) SUBCUT SCH ×3 (05:44→21:44)
[2016-08-29 07:23] LABS: BUN/Creatinine Ratio 17.6 (8-20); Calcium 8.7 mg/dL (8.6-10.3); EGFR African American 36.6 (>60); EGFR Non-African American 28.4 (>60); Potassium 4.1 mmol/L (3.5-5.0)
[2016-08-29] MEDS ORDERED: oxyCODONE/Acetamin 5/325 MG* TAB PO PRN (07:52)
[2016-08-29] MEDS: Diphenoxylat/Atrop 2.5-0.025M* 1 TAB PO SCH ×2 (08:10→20:33)
[2016-08-29] MEDS: Pantoprazole IV* 40 MG IV SCH (08:10)
[2016-08-29] MEDS: Potassium Chlor TAB* 20 MEQ TAB.ER PO SCH ×2 (08:10→20:33)
--- NOTE | 2016-08-29 08:19 | PN ---
Progress Note - Progress Note SOAP: Subjective: Tolerating po well-still with multiple loose green BM's No pain med requirements. Ambulating in halls Objective: Afebrile Temp Pulse Resp BP Pulse Ox 98.2 F 75 16 128/54 100 08/29/16 07:34 08/29/16 07:34 08/29/16 08:00 08/29/16 07:34 08/29/16 07:34 Intake & Output 08/27/16 08/28/16 08/29/16 08/30/16 06:59 06:59 06:59 06:59 Intake Total 3788 4704 4152 Output Total 1350 1999 2125 325 Balance 2438 2704 2026 - Intake: IV Fluids 3028 1878 2087 LR 1595 1878 208 NS (0.9%) 1433 IVPB 236 potassium 236 Oral 760 2590 2065 Output: Urine 650 1999 2125 225 Patel 450 Liquid Stool 250 100 Other: Date of Last Bowel 08/27/16 08/29/16 Movement # Bowel Movements 2 1 multiple during night Estimated Stool Amount Large Large Medium Medium PEX: Comfortable Lungs are clear Abd is soft and non-distended; Bowel sounds are present and normoactive. Incsion and ostomy site are clean and open with some seropurulent drainage-- packing was changed. Extremities without edema Laboratory Results - last 24 hr 08/29/16 06:31 Sodium 140 Potassium 4.1 Chloride 115 H Carbon Dioxide 18 L Anion Gap 7 BUN 39 H Creatinine 2.22 H Est GFR ( Amer) 36.6 Est GFR (Non-Af Amer) 28.4 BUN/Creatinine Ratio 17.6 Glucose 101 H Calcium 8.7 Assessment: POD # 5 s/p ileostomy reversal with ileal-rectal anastomosis Ileus resolved--having multiple bowel movements as expected after having subtotal colectomy Chronic renal failure Hypokalemia-resolved Plan: Will start Lomotil and follow diarrhea-- Decrease IVF Regular diet Recheck labs in AM Will plan D/C when able to maintain adequate fluid balance to avoid dehydration and renal failure. Wound Care
[2016-08-30] MEDS: Heparin VIAL(*) 5000 UNITS/ML VIAL (FIVE THOUSAND) SUBCUT SCH ×3 (05:25→21:10)
[2016-08-30 06:52] LABS: BUN/Creatinine Ratio 16.2 (8-20); Calcium 8.4 mg/dL (8.6-10.3); EGFR African American 35.3 (>60); EGFR Non-African American 27.4 (>60); Potassium 4.2 mmol/L (3.5-5.0)
[2016-08-30] MEDS: Diphenoxylat/Atrop 2.5-0.025M* 1 TAB PO SCH ×2 (09:08→21:09)
[2016-08-30] MEDS: Potassium Chlor TAB* 20 MEQ TAB.ER PO SCH ×2 (09:08→21:09)
[2016-08-30] MEDS: Pantoprazole IV* 40 MG IV SCH (09:09)
--- NOTE | 2016-08-30 17:29 | PN ---
Subjective Date of Service: 08/30/16 Interval History: Patient seen in the afternoon. Overall he states he is feeling well. No nausea, tolerating food well. Still with frequent BMs but also feels this is improving, volume is very small with each BM. Family History: Unchanged from Admission Social History: Unchanged from Admission Past Medical History: Unchanged from Admission Objective Active Medications: Acetaminophen (Tylenol Tab*) 650 mg PO Q6H PRN PRN Reason: FEVER Last Admin: 08/30/16 05:25 Dose: 650 mg Diphenoxylate HCl/Atropine (Lomotil Tab*) 1 tab PO BID [facility] Stop: 09/01/16 08:59 Last Admin: 08/30/16 09:08 Dose: 1 tab Heparin Sodium (Porcine) (Heparin Vial(*)) 5,000 units SUBCUT Q8HR [facility] Last Admin: 08/30/16 13:50 Dose: 5,000 units Hydromorphone HCl (Dilaudid Iv*) 0.5 mg IV SLOW PU Q1H PRN PRN Reason: PAIN Sodium Chloride (Ns 0.9% 500 Ml Bag*) 500 mls @ 999 mls/hr IV ONCE PRN PRN Reason: HYPOTENSION Hydromorphone HCl (Dilaudid Automotive Service Director*) 20 mg in 20 mls @ 0 mls/hr CERTIFIED DIALYSIS TECHNICIAN .change Q24H [facility]; Per Protocol PRN Reason: Protocol Lactated Ringer's (Lactated Ringers 1000 Ml Bag*) 1,000 mls @ 50 mls/hr IV PER RATE [facility] Last Admin: 08/30/16 12:22 Dose: 50 mls/hr Ondansetron HCl (Zofran Inj*) 4 mg IV Q6H PRN PRN Reason: NAUSEA Oxycodone/Acetaminophen (Percocet 5/325 Tab*) 1 tab PO Q4H PRN PRN Reason: PAIN Pantoprazole Sodium (Protonix Iv*) 40 mg IV DAILY [facility] Last Admin: 08/30/16 09:09 Dose: 40 mg Potassium Chloride (Klor Con Er Tab*) 40 meq PO BID [facility] Last Admin: 08/30/16 09:08 Dose: 40 meq Vital Signs 08/29/16 08/29/16 08/29/16 19:23 20:07 20:33 Temperature 98.6 F Pulse Rate 72 Respiratory 16 16 16 Rate Blood Pressure 120/54 (mmHg) O2 Sat by Pulse 100 Oximetry 08/29/16 08/29/16 08/30/16 22:33 23:22 03:43 Temperature 100.3 F 100.2 F Pulse Rate 75 71 Respiratory 16 18 18 Rate Blood Pressure 122/58 113/47 (mmHg) O2 Sat by Pulse 98 96 Oximetry 08/30/16 08/30/16 08/30/16 09:08 10:53 11:32 Temperature 99.1 F Pulse Rate 68 Respiratory 18 18 16 Rate Blood Pressure 117/55 (mmHg) O2 Sat by Pulse 99 Oximetry 08/30/16 15:50 Temperature 98.2 F Pulse Rate 69 Respiratory 20 Rate Blood Pressure 120/54 (mmHg) O2 Sat by Pulse 99 Oximetry Oxygen Devices in Use Now: None Appearance: Elderly, M, sitting in chair in NAD, occasional hiccups Eyes: No Scleral Icterus Ears/Nose/Mouth/Throat: Mucous Membranes Moist Neck: NL Appearance and Movements; NL JVP Respiratory: Symmetrical Chest Expansion and Respiratory Effort, Clear to Auscultation Cardiovascular: RRR, - - 3/6 ALYSE at apex Abdominal: - - Mild distension, BS+, non-tender Lymphatic: No Cervical Adenopathy Extremities: - - Trace LE edema Skin: No Rash or Ulcers Neurological: Alert and Oriented x 3 Result Diagrams: 08/26/16 06:37 08/30/16 06:15 Assess/Plan/Problems-Billing Assessment: Mr. Acevedo is a 81 yo male with a PMH of colon adenocarcinoma, s/p subtotal colectomy and ileostomy who presents to the hospital for ileostomy reversal. Hospital Medicine was asked to co-medical manage. - Patient Problems (1) s/p ileostomy reversal Current Visit: Yes Comment: s/p reversal ileostomy Lomotil seems to be slowing BMs somewhat and volume is low, should be able to keep up with losses with PO intake (2) Metabolic acidosis Current Visit: Yes Comment: Still with slight acidosis, likely baseline with CKD (3) CKD (chronic kidney disease) Current Visit: Yes Comment: At baseline (4) HTN (hypertension) Current Visit: Yes Comment: controlled, not on any home meds (5) DVT prophylaxis Current Visit: Yes Comment: HSQ Status and Disposition: Will sign off at this time. Please contact with any further questions. Thank you for this consult.
[2016-08-31] MEDS: Heparin VIAL(*) 5000 UNITS/ML VIAL (FIVE THOUSAND) SUBCUT SCH ×2 (05:57→14:26)
[2016-08-31 07:03] LABS: Hematocrit 26 % (42-52); Hemoglobin 8.6 g/dl (14.0-18.0); Mean Corpuscular HGB Conc 34 g/dl (31-36); Mean Corpuscular Hemoglobin 32 pg (27-31); Mean Corpuscular Volume 96 fL (80-94); Mean Platelet Volume 9 um3 (7.4-10.4); Red Blood Count 2.67 10^6/ul (4.0-5.4); Red Cell Distribution Width 14 % (10.5-15); White Blood Count 9.3 10^3/ul (3.5-10.8)
[2016-08-31 07:16] LABS: BUN/Creatinine Ratio 13.1 (8-20); Calcium 8.4 mg/dL (8.6-10.3); EGFR African American 30.5 (>60); EGFR Non-African American 23.7 (>60); Potassium 4.4 mmol/L (3.5-5.0)
[2016-08-31] MEDS: Diphenoxylat/Atrop 2.5-0.025M* 1 TAB PO SCH (09:06)
[2016-08-31] MEDS ORDERED: Loperamide CAP* 2 MG PO PRN (09:08)
[2016-08-31] MEDS: Pantoprazole IV* 40 MG IV SCH (09:15)
[2016-08-31] MEDS: Potassium Chlor TAB* 20 MEQ TAB.ER PO SCH (09:15)
[2016-08-31 11:58] VITALS: BP 117/67
--- NOTE | 2016-08-31 14:18 | PN ---
Progress Note - Progress Note Note: Surgery Progress: S: POD #7. Seen this a.m. w/ Dr. Rizo. Denies pain. Key po well. Stools somewhat less freq while on Lomotil ( still loose and small volume). Feels up to going home. O: Vital Signs - 8 hr 08/31/16 08/31/16 08/31/16 08:14 09:15 11:14 Temperature 98.2 F Pulse Rate 67 Respiratory 16 16 16 Rate Blood Pressure 137/57 (mmHg) O2 Sat by Pulse 99 Oximetry 08/31/16 11:47 Temperature 98.4 F Pulse Rate 77 Respiratory 18 Rate Blood Pressure 117/67 (mmHg) O2 Sat by Pulse 100 Oximetry Intake and Output Last 24 Hours 08/29/16 08/30/16 08/31/16 09/01/16 06:59 06:59 06:59 06:59 Intake Total 4152 2861 3119 400 Output Total 2125 2575 2650 Balance 2026 286 469 400 Intake: IV Fluids 2086 981 959 LR 2086 981 959 Oral 2064 1880 2160 400 Output: Urine 2124 1875 2650 Liquid Stool 300 Ileostomy 400 Other: Estimated Void Medium Date of Last Bowel 08/29/16 08/31/16 Movement # Bowel Movements 1 1 1 Estimated Stool Amount Medium Medium Small Heart: reg Lungs: clear Abd: +BS; soft, nontender. Midline and former ostomy wounds w/ serosang drainage. No evidence of infection. Ostomy site re-packed w/ saline-moist gauze. No further pkg to midline wound. DSD placed A/P: s/p ileostomy reversal, doing well, ready for d/c home. Will change Lomotil to Imodium; recheck P3 on Wed; office f/u on Wednesday.
--- NOTE | 2016-09-01 04:38 | DS ---
DISCHARGE SUMMARY: DATE OF ADMISSION: 08/24/16 DATE OF DISCHARGE: 08/31/16 ATTENDING SURGEON: El Rizo MD. (dictated by GIOVANNA Steve) HOSPITAL COURSE: Please refer to admission history and physical for admission details. The patient was taken to the operating room on 08/24/16 at which time , he underwent takedown of his ileostomy with re-anastomosis to the rectal stump. He was admitted the day prior to surgery for IV hydration because of an elevated serum creatinine during his preoperative lab work. Since surgery, his creatinine has remained relatively stable ranging from 2.2 to 2.6. He has had an otherwise uneventful postoperative course with gradual resumption of oral diet. He has experienced multiple loose stools (as often as every 1 to 2 hours ) and was begun on Lomotil initially and then switched to Imodium the morning of discharge. This seemed to offer some reprieve in terms of frequency of his stools. He was also treated with potassium chloride repletion for a low serum potassium. PHYSICAL EXAMINATION: As of the day of discharge, temperature 98.4, blood pressure 117/67, pulse 77, respirations 18, room air saturation 100%. General: Well- nourished, well-developed male, in no acute distress. Skin: Warm and dry. No suspicious rashes or lesions. Heart: Regular rate and rhythm. Lungs : Clear to auscultation. No rales or wheezes. Abdomen: Flat, nondistended. Bowel sounds present. Serosanguineous drainage from both the former ileostomy site as well as the midline incision, which was partially closed and has been packed with 0.25-inch packing on a daily basis since surgery. The packing from the midline wound was removed and will be stopped at this point. The packing from the ileostomy site was replaced (saline moistened portion of a 4x4 gauze). Dry sterile dressings were replaced over both. Abdomen: Soft and nontender. There is no evidence of infection. Extremities: No edema. LABORATORY DATA: Most recent lab work includes a hemoglobin of 8.6 and hematocrit of 26. PLAN: Discharge home today. We will repeat his electrolytes on Wednesday with office followup on Wednesday with Dr. Rizo. He will resume his usual prehospital ferrous sulfate and vitamin C. In addition, he will continue with potassium chloride 20 mEq b.i.d. and Imodium 2 mg 2 tablets 4 times daily p.r.n. for loose stool. GIOVANNA STEWARD CC: Joel Joya MD; Robert Erazo MD; Jonathan Quan MD * [id number]/[facility] #: [id number] [facility]
== END 2016-08-31 15:30 | disposition home health service (06) | DRG 330 ==
LOC: SSU 10:44
PROVIDERS: ADMIT Surgery; ATTEND Surgery
PROC: 0DQ80ZZ Repair Small Intestine, Open Approach (ICD-10-PCS; 2016-08-24)
PROC: 0DBB0ZZ Excision of Ileum, Open Approach (ICD-10-PCS; principal; 2016-08-24 09:00)
DX: Z43.2 Encounter for attention to ileostomy (principal); K56.7 Ileus, unspecified; E87.2 Acidosis; E87.8 Other disorders of electrolyte and fluid balance, not elsewhere classified; N28.1 Cyst of kidney, acquired; K91.71 Accidental puncture and laceration of a digestive system organ or structure during a digestive system procedure; E86.0 Dehydration; Z85.038 Personal history of other malignant neoplasm of large intestine; Z85.51 Personal history of malignant neoplasm of bladder; I12.9 Hypertensive chronic kidney disease with stage 1 through stage 4 chronic kidney disease, or unspecified chronic kidney disease; Z66 Do not resuscitate; R50.82 Postprocedural fever; R06.6 Hiccough; E87.6 Hypokalemia; Y83.2 Surgical operation with anastomosis, bypass or graft as the cause of abnormal reaction of the patient, or of later complication, without mention of misadventure at the time of the procedure; N18.3 Chronic kidney disease, stage 3 (moderate); K76.89 Other specified diseases of liver
CPT/HCPCS: 36415; 80048; 80053; 83735; 84100; 84132; 84134; 85025; 85610; 85730; 86850; 86900; 86901; 86922; 88304; A9270-GY; C1776; J0330; J1100; J1335; J1644; J2250; J2405; J2704; J2795; J3010; J3480

== ENCOUNTER 2019-04-11 08:41 | Emergency (ER) | payer MEDICARE ==
[2019-04-11 08:55] VITALS: BP 142/78
--- NOTE | 2019-04-11 09:12 | UC ---
Hip/Pelvis Pain - HPI Summary HPI Summary: PATIENT FELL IN HIS BACKYARD LAST WEEK [place]. NO HEAD INJURY OR LOC BUT PATIENT REPORTS RIGHT HIP PAIN SINCE THEN. IS ABLE TO WEIGHT-BEAR BUT WITH DISCOMFORT. NO KNEE PAIN. - History Of Current Complaint Chief Complaint: UCLowerExtremity Stated Complaint: HIP INJURY Time Seen by Provider: 04/11/19 09:00 Hx Obtained From: Patient, Family/Word Processing Operator - Onset/Duration: Sudden Onset, Lasting Days, Still Present Timing: Constant Severity Initially: Moderate Severity Currently: Moderate Pain Intensity: 4 Pain Scale Used: 0-10 Numeric Character Of Pain: Sharp Aggravating Factor(s): Movement, Weight Bearing Alleviating Factor(s): Rest Associated Signs And Symptoms: Positive: Negative - Allergies/Home Medications Allergies/Adverse Reactions: Allergies Allergy/AdvReac Type Severity Reaction Status Date / Time No Known Allergies Allergy Verified 04/11/19 08:55 Home Medications: Home Medications Cyanocobalamin (Vitamin B-12) [Vitamin B-12] 1,000 mcg PO DAILY WITH MEAL [History Confirmed 04/11/19] Potassium Chloride [Klor-Con M20] 20 meq PO DAILY WITH MEAL 04/11/19 [History Confirmed 04/11/19] Sodium Bicarbonate 650 mg PO TID 04/11/19 [History Confirmed 04/11/19] PMH/Surg Hx/FS Hx/Imm Hx Respiratory History: COPD Cancer History: Colorectal Cancer Other History Of: Hepatitis C - Surgical History Surgical History: Yes Surgery Procedure, Year, and Place: 1992APPENDECTOMY, [facility] [place]. BILATERAL HERNIA REPAIRS, [facility] [place]. 2002 REMOVAL OF BLADDER STONE, [facility] [place]. 09/2012 REMOVAL OF BLADDER STONE, [facility] [place]. BLADDER TUMORS REMOVED, 01/14/2016: ILEOSTOMY PLACED, COLON REMOVED FOR COLON CA - Family History Known Family History: Positive: Non-Contributory - Social History Alcohol Use: Weekly Alcohol Amount: 4-5 glasses of wine a week Substance Use Type: None Smoking Status (MU): Former Smoker Type: Cigarettes Amount Used/How Often: 2-3 CIGARETTES PER DAY/ TOTAL TIME SMOKED 10 YEARS Length of Time of Smoking/Using Tobacco: 10 YEA;RS Have You Smoked in the Last Year: No When Did the Patient Quit Smoking/Using Tobacco: 50 yrs ago - Immunization History Most Recent Influenza Vaccination: 2014 Most Recent Tetanus Shot: up to date Most Recent Pneumonia Vaccination: up to date Review of Systems All Other Systems Reviewed And Are Negative: Yes Constitutional: Positive: Negative Skin: Positive: Negative Respiratory: Positive: Negative Cardiovascular: Positive: Negative Gastrointestinal: Positive: Negative Musculoskeletal: Positive: Arthralgia, Decreased ROM Physical Exam Triage Information Reviewed: Yes Appearance: Well-Appearing, No Pain Distress, Well-Nourished Vital Signs: Initial Vital Signs Temp 98.4 F 04/11/19 08:50 Pulse 95 04/11/19 08:50 Resp 19 04/11/19 08:50 BP 142/78 04/11/19 08:50 Pulse Ox 99 04/11/19 08:50 Vital Signs Reviewed: Yes Eyes: Positive: Conjunctiva Clear ENT: Positive: Hearing grossly normal Neck: Positive: Supple Respiratory: Positive: No respiratory distress, No accessory muscle use Cardiovascular: Positive: Pulses Normal Abdomen Description: Positive: Soft Musculoskeletal: Positive: No Edema, ROM Limited @ - RIGHT HIP, Other: - TTP RIGHT HIP GREATER TROCHANTER Neurological: Positive: Alert Psychological: Positive: Age Appropriate Behavior Skin: Negative: Rashes Diagnostics - Radiology RIGHT HIP XRAYS Radiology Interpretation Completed By: Radiologist Summary of Radiographic Findings: No fracture of the right hip or pelvis is noted. Hip Injury Course/Dx - Course Course Of Treatment: X-RAYS TODAY UNREMARKABLE. PATIENT LIKELY HAS A BURSITIS FROM HIS RECENT FALL. HAVE ADVISED A LOW DOSE OF IBUPROFEN FOR A COUPLE OF DAYS TO BE USED WITH CAUTION GIVEN HIS CHRONIC KIDNEY DISEASE. PATIENT WILL FOLLOW UP WITH HIS PCP AND KIDNEY DOCTOR. TO ORTHOPEDICS IF SYMPTOMS DO NOT IMPROVE OVER THE NEXT WEEK OR SO. - Differential Dx/Diagnosis Provider Diagnosis: Bursitis of right hip Discharge ED - Sign-Out/Discharge Documenting (check all that apply): Patient Departure All imaging exams completed and their final reports reviewed: Yes - Discharge Plan Condition: Stable Disposition: HOME Patient Education Materials: Hip Bursitis (ED) Referrals: Mehdi Escoto MD [Medical Doctor] - 2 Weeks Heavenly Bruce MD [Primary Care Provider] - If Needed Additional Instructions: HIP X-RAY IS UNREMARKABLE TODAY. YOU LIKELY HAVE DEVELOPED A BURSITIS AFTER FALLING A WEEK AGO. REST, ICE, OTC MEDICATIONS NEEDED FOR DISCOMFORT. YOU CAN TAKE 400 MG OF IBUPROFEN A COUPLE OF TIMES DAILY FOR A FEW DAYS HOWEVER GIVEN YOUR CHRONIC KIDNEY DISEASE BE SURE TO STAY WELL HYDRATED AND USE THIS MEDICATION WITH CAUTION. INFORM YOUR KIDNEY DOCTOR. FOLLOW-UP WITH ORTHOPEDICS IF YOU ARE NOT IMPROVING OVER THE NEXT 1-2 WEEKS. - Billing Disposition and Condition Condition: STABLE Disposition: Home
== END 2019-04-11 10:19 | disposition home or self-care (01) ==
LOC: UCEAST 08:41
DX: M70.71 Other bursitis of hip, right hip (principal); B19.20 Unspecified viral hepatitis C without hepatic coma; J44.9 Chronic obstructive pulmonary disease, unspecified; Z85.038 Personal history of other malignant neoplasm of large intestine; Z87.891 Personal history of nicotine dependence
CPT/HCPCS: 99211; G0463